=== PATIENT | female | born 1970 | race American Indian/Alaskan Native ===

== ENCOUNTER 2018-12-20 06:03 | Day surgery (SDC) | payer OTHER ==
[2018-12-20] MEDS ORDERED: ECOTRIN PO ONE (06:17)
[2018-12-20] MEDS ORDERED: NACL 0.9% 500 ML 500 ML IV SCH (07:00)
[2018-12-20 07:06] LABS: INR 0.95 (0.87-1.13)
[2018-12-20 07:07] LABS: Hemoglobin 11.9 gm/dl (10.1-14.3); Mean Corpuscular HGB Conc 33 % (30-34); Mean Corpuscular Volume 83 fl (79-97); Platelet Count 250 K/mm3 (140-440); Red Blood Count 4.36 M/mm3 (3.65-5.03); Red Cell Distribution Width 13.7 % (13.2-15.2)
[2018-12-20 07:55] LABS: BUN/Creatinine Ratio 14; Blood Urea Nitrogen 10 mg/dL (7-17); Hemolysis Index 6
[2018-12-20] MEDS ORDERED: VERSED ONE (08:18)
[2018-12-20] MEDS ORDERED: HEPARIN/NS 5000 UNIT/500ML(CATH LAB) 1,000 ML IR ONE (08:19)
[2018-12-20] MEDS ORDERED: HEPARIN 10,000 UNITS/10 ML ONE (08:19)
[2018-12-20] MEDS ORDERED: CALAN ONE (08:19)
[2018-12-20] MEDS ORDERED: SUBLIMAZE ONE (08:19)
[2018-12-20] MEDS ORDERED: XYLOCAINE 2% INFILTRATI ONE (08:19)
[2018-12-20] MEDS ORDERED: NITROGLYCERIN SYRINGE 3 ML ONE (08:20)
[2018-12-20 09:00] LABS: Basophils % (Manual) 0 % (0.0-1.8); Platelet Estimate Consistent w Auto; RBC Morphology Normal; Total Cells Counted 100
[2018-12-20 12:25] VITALS: BP 114/79
--- NOTE | 2018-12-20 14:52 | Cardiac Catherization Report ---
CARDIAC CATHETERIZATION REFERRING PHYSICIAN: Rene Graves MD INDICATION FOR PROCEDURE: The patient is a pleasant 48-year-old -[place] female who saw me for preoperative evaluation, had an abnormal nuclear stress test, has diabetes and dyspnea; referred for left heart catheterization. Risks, benefits, and potential alternatives were explained at length prior to obtaining informed consent. PROCEDURE IN DETAIL: The patient was brought to the catheterization lab in postabsorptive state, prepped and draped in sterile fashion. Marcel's test in right hand was normal. A 2 mL of 2% lidocaine anesthetized the right wrist. A standard 6-[place] hydrophilic sheath used to cannulate the right radial artery via modified Seldinger technique. All exchanges performed to exchange a J-tip guidewire. JL3.5 catheter used to engage the left main. No dampening or ventricularization. Cineangiography performed in multiple projections. JR4 catheter was used to cross the aortic valve under fluoroscopic guidance. Left ventriculography performed in 30 PARMAR and 30 LIBERIAN projections via hand injections, catheter flushed. Manual pullback performed with continuous pressure monitoring. Catheter used to engage the right coronary. No dampening or ventricularization. Cineangiography performed in multiple projections. Next, catheter removed from the body of wire, sheath removed. Manual pressure used to achieve hemostasis. I directly supervised the administration of moderate sedation with fentanyl and Versed from 8:40 a.m. to 9:10 a.m. There were no immediate complications. DATA: The patient remained in normal sinus rhythm throughout the procedure. Aortic pressure is 130/70, LV pressure is 130, LVEP of 12 mmHg. Left ventriculography reveals normal systolic performance with estimated ejection fraction of 55-60%. No evidence of aortic stenosis. CORONARY ANATOMY: This is a right dominant system. Right coronary is a large vessel, courses AV groove, distally bifurcates the posterior descending and posterolateral branch. No discrete stenosis noted. Left main is without significant disease, bifurcates left anterior descending and left circumflex. LAD is a moderate sized vessel, courses anterior intergroove, wraps around the apex, no significant disease in the LAD or diagonal branches. Left circumflex is a moderate sized vessel, courses AV groove. No significant disease in the left circumflex. CONCLUSIONS: 1. No angiographic evidence of epicardial coronary disease in this right dominant system. 2. Normal left ventricular systolic performance, estimated ejection fraction of 55-60%. 3. No evidence of aortic stenosis. 4. Normal LVEDP. The patient is clinically stable, chest pain free. The results of the procedure were explained to the patient and family. All questions and concerns were addressed. Standard radial care. The patient will be discharged home once radial site is stable. [facility]# [id number] AGUSTÍN/NTS
--- NOTE | 2018-12-21 11:24 | Short Stay Summary ---
Short Stay Documentation Date of service: 12/20/18 - History H&P: obtained from office - Allergies and Medications Current Medications: Allergies acetaminophen [From Percocet] Adverse Reaction (Unverified 12/20/18 06:07) Nausea codeine Adverse Reaction (Unverified 12/20/18 06:07) Nausea oxycodone [From Percocet] Adverse Reaction (Unverified 12/20/18 06:07) Nausea Home Medications Medication Instructions Recorded Confirmed Last Taken Type HYDROcodone/APAP 7.5-325 [[place] 1 each PO Q6HR PRN #20 tablet 03/09/15 12/20/18 Unknown Rx 7.5/325] Ibuprofen [Motrin 600 MG tab] 600 mg PO Q8H PRN #40 tablet 03/09/15 12/20/18 Unknown Rx Cholecalciferol Vit D3 [Vitamin D3 1,000 unit PO DAILY 12/20/18 12/20/18 1 Day Ago History 1,000 UNIT TAB] ~12/19/18 Lisinopril [Zestril TAB] 10 mg PO DAILY 12/20/18 12/20/18 1 Day Ago History ~12/19/18 SUMAtriptan succinate [SUMAtriptan 25 mg PO PRN 12/20/18 12/20/18 1 Month Ago History Succinate] ~11/19/18 glipiZIDE XL [Glucotrol Xl] 2.5 mg PO DAILY 12/20/18 12/20/18 1 Day Ago History ~12/19/18 - Brief post op/procedure progress note Date of procedure: 12/20/18 Pre-op diagnosis: abnormal stress test Post-op diagnosis: other (normal coronaries) Procedure: [facility] - see dictated cath report Anesthesia: local Estimated blood loss: none Condition: stable - Disposition Condition at discharge: Good Disposition: [id number] TO HOME OR SELFCARE - Discharge Diagnoses (1) Normal coronary arteries Status: Chronic Short Stay Discharge Plan Activity: advance as tolerated Wound: open to air, keep clean and dry, per your surgeon's advice Follow up with: ANNIE CAMPBELL MD [Primary Care Provider] - 7 Days Forms: CardCath PCI D/C Instructions
== END 2018-12-20 12:25 | disposition home or self-care (01) ==
LOC: CATHLABREC 06:03
PROVIDERS: ATTEND Internal Medicine
DX: R94.39 Abnormal result of other cardiovascular function study (principal); R06.00 Dyspnea, unspecified; E11.9 Type 2 diabetes mellitus without complications; I10 Essential (primary) hypertension; G47.30 Sleep apnea, unspecified; E66.9 Obesity, unspecified; M19.90 Unspecified osteoarthritis, unspecified site; Z68.41 Body mass index [BMI] 40.0-44.9, adult; Z98.890 Other specified postprocedural states; Z98.51 Tubal ligation status; Z90.49 Acquired absence of other specified parts of digestive tract; Z91.81 History of falling; Z88.5 Allergy status to narcotic agent; Z79.01 Long term (current) use of anticoagulants; Z79.899 Other long term (current) drug therapy; Z87.891 Personal history of nicotine dependence; Z98.49 Cataract extraction status, unspecified eye; Z83.3 Family history of diabetes mellitus; Z82.49 Family history of ischemic heart disease and other diseases of the circulatory system; Z88.8 Allergy status to other drugs, medicaments and biological substances
CPT/HCPCS: 36415; 80048; 82962; 85007; 85025; 85610; 85730; 93005; 93010; 93458; 99156; 99157; C1894; J1644; J2250; J3010; J7040; Q9967